=== PATIENT | male | born 1990 | race Caucasian/White ===

== ENCOUNTER 2016-12-27 12:53 | Emergency (ER) | payer BC ==
--- NOTE | 2016-12-27 13:32 | EDM.PDOC ---
ED HPI GENERAL MEDICAL PROBLEM - General Chief Complaint: Respiratory Problem Stated Complaint: TROUBLE BREATHING Time Seen by Provider: 12/27/16 13:17 Source of Information: Reports: Patient History Limitations: Reports: No Limitations - History of Present Illness INITIAL COMMENTS - FREE TEXT/NARRATIVE: Patient is a 26-year-old male who presents to the ED with concerns of having possible epiglottitis. Patient was seen by Dr. Tomlin at the [facility] in clinic today. Patient had been complaining of sore throat and restricted breathing with laying flat. He had cold like symptoms for 5 days prior. This included with sinus congestion postnasal drip. He awoke this morning with restricted breathing improved with sitting up. He does have a history of strep throat multiple times in the past with similar symptoms. He has no tonsils and adenoids. Sore throat has been present for 2 days. He has no issues with controlling his secretions. Has had pain with swallowing. His immunizations are up-to-date. Denies any fever/chills, cough, chest pain, stress of breath currently, nausea/vomiting, abdominal pain, or developing a rash. Patient has no pertinent past history and currently taking no medications. Surgical history as discussed above. Denies any smoking, alcohol, recreational drug use. There has been no recent sick exposures. Lateral x-ray of the neck did reveal questionable epiglottitis. ENT was consult at [facility] with suggestions of administering Rocephin 2 g and Decadron. Requested patient be seen in the ED to have fiber optics utilized to visualization the epiglottis to rule in/out. I did discuss this with anesthesia and they do have a scope present to do this. - Related Data Allergies Allergy/AdvReac Type Severity Reaction Status Date / Time No Known Allergies Allergy Verified 12/27/16 13:01 Home Meds: Home Meds Amoxicillin/Clavulanate K [Augmentin 875 MG/125 MG] 1 tab PO Q12HR #20 tablet [Rx] Past Medical History Neurological History: Reports: Concussion - Past Surgical History HEENT Surgical History: Reports: Adenoidectomy, Tonsillectomy, Other (See Below) Other HEENT Surgeries/Procedures: septum repair Neurological Surgical History: Reports: None Musculoskeletal Surgical History: Reports: Other (See Below) Other Musculoskeletal Surgeries/Procedures:: left achilles tendon repair Social & Family History - Tobacco Use Smoking Status *Q: Never Smoker Second Hand Smoke Exposure: No - Caffeine Use Caffeine Use: Reports: Soda - Recreational Drug Use Recreational Drug Use: No ED ROS GENERAL - Review of Systems Review Of Systems: See Below Constitutional: Reports: No Symptoms HEENT: Reports: Throat Pain, Throat Swelling. Denies: Ear Pain, Sinus Problem Respiratory: Reports: No Symptoms Cardiovascular: Reports: No Symptoms GI/Abdominal: Reports: No Symptoms Musculoskeletal: Reports: No Symptoms Skin: Reports: No Symptoms Neurological: Reports: No Symptoms ED EXAM, GENERAL - Physical Exam Exam: See Below Exam Limited By: No Limitations General Appearance: Alert, WD/WN, No Apparent Distress Eye Exam: Bilateral Eye: EOMI, PERRL Ears: Normal External Exam, Hearing Grossly Normal Nose: Normal Inspection, Normal Mucosa, No Blood Throat/Mouth: Normal Inspection, Normal Voice, No Airway Compromise, Other ( Mildly red with no exudates present. No visualization of the epiglottis) Head: Atraumatic, Normocephalic Neck: Normal Inspection, Supple, Non-Tender, Full Range of Motion. No: Lymphadenopathy (L), Lymphadenopathy (R) Respiratory/Chest: No Respiratory Distress, Lungs Clear, Normal Breath Sounds, No Accessory Muscle Use, Chest Non-Tender Cardiovascular: Normal Peripheral Pulses, Regular Rate, Rhythm, No Murmur Peripheral Pulses: 2+: Radial (L) GI/Abdominal: Normal Bowel Sounds, Soft, Non-Tender, No Organomegaly, No Distention Back Exam: Normal Inspection Neurological: Alert, Oriented, CN II-XII Intact, Normal Cognition, No Motor/ Sensory Deficits Psychiatric: Normal Affect, Normal Mood Skin Exam: Warm, Dry, Intact, Normal Color Course - Vital Signs Last Recorded V/S: Last Vital Signs Temp 97.9 F 12/27/16 13:01 Pulse 84 12/27/16 16:28 Resp 20 12/27/16 16:28 BP 120/80 12/27/16 16:28 Pulse Ox 97 12/27/16 16:28 - Orders/Labs/Meds Labs: Laboratory Tests 12/27/16 12/27/16 Range/Units 13:58 13:58 WBC 7.91 (4.23-9.07) K/mm3 RBC 5.28 (4.63-6.08) M/mm3 Hgb 15.7 (13.7-17.5) gm/L Hct 46.1 (40.1-51.0) % MCV 87.3 (79.0-92.2) fl MCH 29.7 (25.7-32.2) pg MCHC 34.1 (32.2-35.5) g/dl RDW Std Deviation 39.5 (35.1-43.9) fL Plt Count 190 (163-337) K/mm3 MPV 9.2 L (9.4-12.3) fl Neut % (Auto) 84.0 H (34.0-67.9) % Lymph % (Auto) 9.4 L (21.8-53.1) % [place] % (Auto) 6.1 (5.3-12.2) % Eos % (Auto) 0.3 L (0.8-7.0) Baso % (Auto) 0.1 (0.1-1.2) % Neut # (Auto) 6.65 H (1.78-5.38) K/mm3 Lymph # (Auto) 0.74 L (1.32-3.57) K/mm3 [place] # (Auto) 0.48 (0.30-0.82) K/mm3 Eos # (Auto) 0.02 L (0.04-0.54) K/mm3 Baso # (Auto) 0.01 (0.01-0.08) K/mm3 Manual Slide Review Normal smear Sodium 138 (136-145) mEq/L Potassium 3.9 (3.5-5.1) mEq/L Chloride 103 (98-107) mEq/L Carbon Dioxide 29 (21-32) mEq/L Anion Gap 9.9 (5-15) BUN 13 (7-18) mg/dL Creatinine 1.1 (0.7-1.3) mg/dL Est Cr Clr Drug Dosing 112.99 mL/min Estimated GFR (MDRD) > 60 (>60) mL/min BUN/Creatinine Ratio 11.8 L (14-18) Glucose 102 (74-106) mg/dL Calcium 9.1 (8.5-10.1) mg/dL Total Bilirubin 0.8 (0.2-1.0) mg/dL AST 18 (15-37) U/L ALT 28 (16-63) U/L Alkaline Phosphatase 82 (46-116) U/L C-Reactive Protein 0.9 (<1.0) mg/dL Total Protein 8.0 (6.4-8.2) g/dl Albumin 4.2 (3.4-5.0) g/dl Globulin 3.8 gm/dL Albumin/Globulin Ratio 1.1 (1-2) Meds: Medications Discontinued Medications Generic Name Dose Route Start Last Admin Trade Name Drakeq PRN Reason Stop Dose Admin Amoxicillin/Clavulanate Potassium 1 tab 12/27/16 16:10 12/27/16 16:19 Augmentin 875 Mg/125 Mg PO 12/27/16 16:11 1 tab ONETIME ONE Administration - Re-Assessments/Exams Free Text/Narrative Re-Assessment/Exam: Patient presents to the ED with resolving sore throat. Significant improved after administration of the Rocephin and Decadron. He has had at no time difficulty in controlling his oral secretions, increased anxiety, stridor, drooling, or respiratory distress. He presents with no acute distress noted. Vital signs are stable. Oxygen saturation was 97% on room air with respiratory rate 15 times per minute. He has a history of strep throat multiple times. Immunizations are up-to-date. Will obtain basic labs. Will discuss with ENT specialist regional engineer at [facility]. 12/27/16 14:53 Labs reviewed: Na 138,k+3.9, Cr 1.1,CRP 0.9, N% 84,# 6.65. C14 essentially normal. [address] Evans, suggest taking a look at the epliglottis to evaluate for inflammation. I did speak with anesthesia and they're quite concerned about doing this with the increased risk of causing increased inflammation/disrupting the current airway. Dr. Evans stated with having Rocephin and Decadron onboard there is a lower probability of this occurring. She requested anesthesia to call if there is any concerns. 12/27/16 1558 Anesthesia was called. Lisa WOODS along with other providers did not feel comfortable in performing this procedure. Requested patient be transferred to [place] to have this completed if necessary. Again patient is not toxic pulse ox is stable, patient's in no acute distress. [address] Evans ENT specialist with [facility]. She will leave it up to me in determining if patient needed to be transferred to [facility] for further evaluation. If so patient would require transferring to the [facility] ER to be reevaluated. Or patient could be admitted here to observation with additional injections of Rocephin. I did mention to her patient would most likely want to go home and thus recommended another dose of Rocephin here in the ED. Discussed this conversation with the patient. He is requesting to be discharged home. He will follow-up in the ER tomorrow morning early for reevaluation. Will start the patient on Augmentin. Ordered Augmentin 875 one tab by mouth. Lisa with anesthesia did speak with the patient as to why they do not feel comfortable in performing the above procedure. Patient was educated on returning to the ED if he should experience any worsening symptoms. Again it was reiterated to come to the ED as soon as he develops any symptoms. Max total dose of Rocephin in a 24-hour period is 2 g. Patient has already had this medication today. We will hold off until tomorrow morning. Departure - Departure Time of Disposition: 16:11 Disposition: Home, Self-Care 01 Condition: Good Clinical Impression: Sore throat, Epiglottitis - Discharge Information Prescriptions: Amoxicillin/Clavulanate K [Augmentin 875 MG/125 MG] 1 tab PO Q12HR #20 tablet Instructions: Sore Throat, [id number] Referrals: PCP,None [Primary Care Provider] - Forms: ED Department Discharge, Return to Work/School Form Additional Instructions: Please return to the ED tomorrow morning for reevaluation and additional dose of rocephin 1 gram IM. Take the Augmentin as prescribed, full course. Utilize ibuprofen and Tylenol in alternating fashion for pain. Push the fluids. Ensure adequate rest. If you develop increased shortness of breath, difficulty swallowing difficulty controlling your secretions, increasing pain, fever/chills , increased anxiety, stridor, drooling, or any additional new or worsening symptoms please return to ED as soon as possible. It is unclear if you have epiglottitis. X-ray of the neck did suggest possibility for early epiglotittis. Do not wait to come to the ED if symptoms start to worsen. Delay in treatment may lead to .
[2016-12-27] MEDS ORDERED: Amoxicillin/Clavulanate K 875-125 MG Tab PO ONE (16:10)
--- NOTE | 2016-12-27 16:18 | PCM.SN ---
- Free Text/Narrative Note: Start: 1600 Stop: 1610 Anesthesia requested to consult on a potential epiglotitis presentation of a 26 yr old male. Patient presents laying comfortably in the ER with no signs or symptoms of respiratory distress. Patient states that after injection of antibiotics and decadron, patient feels way better. BETHANY Sevilla relayed options to patient regarding more antibiotics and a follow up visit tomorrow am. Patient was educated and instructed to come in sooner if symptoms of difficulty swallowing, difficulty breathing, or the sensation to sit up to breathe occurs. Patient demonstrates understanding of the importance to comply with instructions.
[2016-12-27 16:31] VITALS: BP 120/80
== END 2016-12-27 16:30 | disposition home or self-care (01) ==
LOC: EDBD 12:53 → JD.ED 12:53
DX: J05.10 Acute epiglottitis without obstruction (principal); J02.9 Acute pharyngitis, unspecified; Z98.890 Other specified postprocedural states
CPT/HCPCS: 36415; 80053; 85025; 86140; 99284; A9270

== ENCOUNTER 2016-12-28 07:57 | Emergency (ER) | payer BC ==
[2016-12-28] MEDS ORDERED: predniSONE 20 MG Tab PO ONE (08:19)
[2016-12-28] MEDS ORDERED: cefTRIAXone 1 GM, Lidocaine 1% 2.1 ML IM ONE ×2 (08:21)
--- NOTE | 2016-12-28 09:00 | EDM.PDOC ---
ED HPI GENERAL MEDICAL PROBLEM - General Chief Complaint: ENT Problem Stated Complaint: FOLLOW UP STEROID SHOT Time Seen by Provider: 12/28/16 08:09 Source of Information: Reports: Patient, RN Notes Reviewed - History of Present Illness INITIAL COMMENTS - FREE TEXT/NARRATIVE: 26-year-old male returns for recheck, IM antibiotics after having been referred to the ED yesterday from [place] walk-in clinic with concern of possible epiglottitis. See record of yesterday for details. He started more with upper respiratory type symptoms 5 days ago and then severe sore throat 2 or 3 days ago. Yesterday he developed difficulty breathing. X-ray of the neck apparently showed questionable swelling of the epiglottis. He did receive 2 g of Rocephin IM yesterday, Decadron and also started on Augmentin 875 twice a day. He had one dose of Augmentin last evening and another dose this morning. Today he feels much better. At this time his throat discomfort is "almost gone". He did not have any respiratory difficulty during the night and continues to have no respiratory or swallowing difficulty this morning. No fever or chills. He states he feels "tremendously better" - Related Data Allergies Allergy/AdvReac Type Severity Reaction Status Date / Time No Known Allergies Allergy Verified 12/28/16 08:01 Home Meds: Home Meds Amoxicillin/Clavulanate K [Augmentin 875 MG/125 MG] 1 tab PO Q12HR #20 tablet [Rx] Past Medical History Neurological History: Reports: Concussion - Past Surgical History HEENT Surgical History: Reports: Adenoidectomy, Tonsillectomy, Other (See Below) Other HEENT Surgeries/Procedures: septum repair Neurological Surgical History: Reports: None Musculoskeletal Surgical History: Reports: Other (See Below) Other Musculoskeletal Surgeries/Procedures:: left achilles tendon repair Social & Family History - Tobacco Use Smoking Status *Q: Never Smoker Second Hand Smoke Exposure: No - Caffeine Use Caffeine Use: Reports: Soda - Recreational Drug Use Recreational Drug Use: No ED ROS ENT - Review of Systems Review Of Systems: See Below Constitutional: Denies: Fever, Chills, Diaphoresis HEENT: Reports: Sinus Problem (Much better today nasal and sinus congestion several days ago, resolving), Throat Pain Respiratory: Reports: Shortness of Breath (Yesterday). Denies: Cough Cardiovascular: Denies: Chest Pain GI/Abdominal: Denies: Abdominal Pain, Nausea, Vomiting Musculoskeletal: Denies: Neck Pain, Back Pain, Joint Pain Skin: Reports: No Symptoms ED EXAM, ENT - Physical Exam Exam: See Below General Appearance: Alert, No Apparent Distress Eye Exam: Bilateral Eye: PERRL Nose: Normal Inspection Mouth/Throat: Normal Inspection, Other. No: Throat Swelling, Tonsillar Exudates , Tonsillar Swelling, Uvular Edema (Throat is not inflamed today) Head: Atraumatic. No: Facial Swelling Neck: Supple, Full Range of Motion. No: Lymphadenopathy (L), Lymphadenopathy (R ) Respiratory/Chest: No Respiratory Distress, Lungs Clear, Normal Breath Sounds Cardiovascular: Regular Rate, Rhythm Extremities: Normal Inspection Neurological: Alert, Oriented, No Motor/Sensory Deficits Skin: Warm, Dry, Normal Color Course - Vital Signs Last Recorded V/S: Last Vital Signs Temp 98.0 F 12/28/16 09:10 Pulse 66 12/28/16 09:10 Resp 16 12/28/16 08:01 BP 125/79 12/28/16 09:10 Pulse Ox 98 12/28/16 09:10 - Orders/Labs/Meds Meds: Medications Discontinued Medications Generic Name Dose Route Start Last Admin Trade Name Freq PRN Reason Stop Dose Admin Ceftriaxone Sodium 1 gm/ 0 gm 12/28/16 08:21 12/28/16 08:31 Lidocaine HCl 2.1 ml IM 12/28/16 08:22 2.51 inj ONETIME ONE Administration Prednisone 40 mg 12/28/16 08:19 12/28/16 08:30 Prednisone PO 12/28/16 08:20 40 mg ONETIME ONE Administration - Re-Assessments/Exams Free Text/Narrative Re-Assessment/Exam: 12/28/16 10:01 Have given Rocephin 1 g IM, discharge instructions as documented Departure - Departure Time of Disposition: 08:59 Disposition: Home, Self-Care 01 Condition: Fair Clinical Impression: Pharyngitis Qualifiers: Pharyngitis/tonsillitis etiology: unspecified etiology Qualified Code(s): J02.9 - Acute pharyngitis, unspecified - Discharge Information Instructions: Pharyngitis Referrals: PCP,None [Primary Care Provider] - Forms: ED Department Discharge Additional Instructions: Rest, drink plenty of water to maintain hydration, continue Augmentin as prescribed, Tylenol or ibuprofen as needed for discomfort. Follow-up clinic as needed if symptoms not continuing to resolve as expected, return to ED as needed.
[2016-12-28 09:25] VITALS: BP 125/79
== END 2016-12-28 09:15 | disposition home or self-care (01) ==
LOC: JD.ED 07:57
DX: J02.9 Acute pharyngitis, unspecified (principal); Z98.890 Other specified postprocedural states
CPT/HCPCS: 96372; 99282; A9270; J0696